=== PATIENT | female | born 1990 | race Two or more races ===

== ENCOUNTER 2021-10-09 06:14 | Emergency (ER) | payer MEDICAID, OTHER ==
[~2021-10-09] VITALS: Ht 160 cm; Wt 70.0 kg
[2021-10-09 07:25] VITALS: BP 120/88
[2021-10-09] MEDS ORDERED: KETOROLAC TROMETH 60MG/2ML VIAL IM ONE (07:30)
[2021-10-09] MEDS ORDERED: METH750T22 PO (07:55)
[2021-10-09] MEDS ORDERED: IBUP800T27 PO (07:55)
== END 2021-10-09 08:13 | disposition home or self-care (01) ==
LOC: ER 06:14
DX: S43.102A Unspecified dislocation of left acromioclavicular joint, initial encounter (principal); S16.1XXA Strain of muscle, fascia and tendon at neck level, initial encounter; E03.9 Hypothyroidism, unspecified; Z79.1 Long term (current) use of non-steroidal anti-inflammatories (NSAID); Z79.899 Other long term (current) drug therapy; V49.9XXA Car occupant (driver) (passenger) injured in unspecified traffic accident, initial encounter; Y93.89 Activity, other specified; Y92.410 Unspecified street and highway as the place of occurrence of the external cause; Y99.8 Other external cause status
CPT/HCPCS: 72125; 73030; 93005; 96372; 99284; J1885